=== PATIENT | female | born 1995 | race Caucasian/White ===

== ENCOUNTER 2023-10-17 07:04 | Emergency (ER) | payer OTHER ==
[~2023-10-17] VITALS: Ht 157.5 cm; Wt 49.9 kg
[2023-10-17 07:11] VITALS: BP_SYST 114; PULSE 70; RESP 16; TEMP 98.6; O2SAT 100
[2023-10-17] MEDS: DIPHTH,PERTUSS(ACELL),TET VAC 0.5 ML VIAL (Tdap) I.M. ONE (07:28)
[2023-10-17 07:46] VITALS: BP_SYST 114; PULSE 70; RESP 16; TEMP 98.6; O2SAT 100
== END 2023-10-17 07:47 | disposition home or self-care (01) ==
LOC: SED 07:04
DX: S61.211A Laceration without foreign body of left index finger without damage to nail, initial encounter (principal); Z79.899 Other long term (current) drug therapy; W26.8XXA Contact with other sharp object(s), not elsewhere classified, initial encounter; Y93.89 Activity, other specified; Y92.89 Other specified places as the place of occurrence of the external cause; Y99.8 Other external cause status
CPT/HCPCS: 90715; 99283